=== PATIENT | male | born 1970 | race Caucasian/White ===

== ENCOUNTER 2017-11-10 15:17 | Emergency (ER) | payer BC ==
[~2017-11-10] VITALS: Ht 170.2 cm; Wt 113.6 kg
[2017-11-10 15:35] VITALS: Ht 170.2 cm; Wt 113.6 kg
[2017-11-10] MEDS ORDERED: EXFORGE 5-160 M1 TAB PO (15:37)
[2017-11-10] MEDS ORDERED: PENICILLIN V P500 MG PO (15:37)
[2017-11-10] MEDS ORDERED: ZANTAC150 MG PO (15:37)
[2017-11-10 17:20] LABS: BASOPHILS 0.1 % (0-2); EOSINOPHILS 0.5 % (0-7); HEMATOCRIT 36.8 % (42.0-54.0); HEMOGLOBIN 12.5 g/dL (13.5-17.5); IMMATURE GRANULOCYTES 0.4 % (0-5); LYMPHOCYTES 21.4 % (15-50); MCH 29.3 pg (26.0-34.0); MCV 86.2 fL (80.0-100.0); MEAN PLATELET VOLUME 9.3 fL (7.4-10.4); MONOCYTES 5.5 % (2-11); NEUTROPHILS 72.1 % (40-80); PLATELET COUNT 354 10x3/uL (130-400); RBC 4.27 10x6/uL (4.20-6.10); RDW 13.5 % (11.5-14.5); WBC 9.4 10x3/uL (4.8-10.8)
[2017-11-10 17:42] LABS: ALBUMIN 3.5 g/dL (3.4-5.0); ALKALINE PHOSPHATASE 75 U/L (46-116); ALT (SGPT) 35 U/L (10-68); BILIRUBIN - TOTAL 0.86 mg/dL (0.2-1.3); CALC OSMOLALITY 277 mosm/kg (275-300); CARBON DIOXIDE 28.2 mmol/L (21.0-32.0); CHLORIDE - SERUM 101 mmol/L (98-107); GLUCOSE 97 mg/dL (74-106); POTASSIUM - SERUM 3.8 mmol/L (3.5-5.1); PROTEIN - SERUM 7.4 g/dL (6.4-8.2); SODIUM 139 mmol/L (136-145); UREA NITROGEN 12 mg/dL (7-18); eGFR NON AFRICAN AMERICAN 85 mL/min (90-120)
[2017-11-10 18:05] LABS: APTT 32.9 SECONDS (22.8-39.4); INR 1.05 (0.85-1.17); PROTIME 13.3 SECONDS (11.6-15.0)
[2017-11-10 18:07] LABS: D-DIMER-QUANTITATIVE 0.39 ug/mLFEU (0.20-0.54)
[2017-11-10 18:28] LABS: CREATINE KINASE 143 UL (21-232)
[2017-11-10 18:43] LABS: C-REACTIVE PROTEIN 0.9 mg/dL (0.0-0.9)
[2017-11-10 19:20] LABS: CKMB 0.7 U/L (0.0-3.6)
[2017-11-10 19:49] LABS: ERYTHROCYTE SEDIMENTATION RATE 23 mm/hr (0-15)
[2017-11-10 20:00] VITALS: BP 169/84
[2017-11-10 20:19] LABS: APPEARANCE CLEAR (CLEAR); BILIRUBIN NEGATIVE (NEGATIVE); COLOR YELLOW (YELLOW); GLUCOSE NEGATIVE (NEGATIVE); KETONE NEGATIVE (NEGATIVE); NITRITE NEGATIVE (NEGATIVE); PROTEIN NEGATIVE (NEGATIVE); UROBILINOGEN NORMAL (NORMAL)
[2017-11-10 21:00] VITALS: BP 159/72
[2017-11-10 22:00] VITALS: BP 157/79
[2017-11-10 23:09] VITALS: BP 162/79
== END 2017-11-10 23:09 | disposition other institution (70) ==
LOC: D.ER 15:17 → D.SDCHOLD 16:31 → D.ER 16:31
PROVIDERS: Family Medicine
DX: I38 Endocarditis, valve unspecified (principal)

== ENCOUNTER → 2017-11-15 15:13 | Outpatient (CLI) | payer BC ==
[2017-11-10 15:35] VITALS: BMI 39.2
[~2017-11-15 15:13] MED LIST: EXFORGE 5-160 M1 TAB PO; PENICILLIN V P500 MG PO; ZANTAC150 MG PO
[2017-11-15 16:09] LABS: BASOPHILS 0.2 % (0-2); EOSINOPHILS 2.1 % (0-7); HEMATOCRIT 38.4 % (42.0-54.0); HEMOGLOBIN 12.8 g/dL (13.5-17.5); IMMATURE GRANULOCYTES 0.3 % (0-5); LYMPHOCYTES 27.8 % (15-50); MCH 29.4 pg (26.0-34.0); MCHC 33.3 g/dL (31.0-37.0); MCV 88.3 fL (80.0-100.0); MEAN PLATELET VOLUME 10.3 fL (7.4-10.4); MONOCYTES 7.3 % (2-11); NEUTROPHILS 62.3 % (40-80); PLATELET COUNT 338 10x3/uL (130-400); RBC 4.35 10x6/uL (4.20-6.10); RDW 14.1 % (11.5-14.5); WBC 6.3 10x3/uL (4.8-10.8)
[2017-11-15 16:21] LABS: CALC OSMOLALITY 282 mosm/kg (275-300); CALCIUM 8.8 mg/dL (8.5-10.1); CARBON DIOXIDE 28.1 mmol/L (21.0-32.0); CHLORIDE - SERUM 100 mmol/L (98-107); CREATININE - SERUM 1.1 mg/dL (0.6-1.3); GLUCOSE 113 mg/dL (74-106); SODIUM 141 mmol/L (136-145); UREA NITROGEN 15 mg/dL (7-18); eGFR NON AFRICAN AMERICAN 76 mL/min (90-120)
== END | disposition home or self-care (01) ==
LOC: D.LAB 15:13
PROVIDERS: Family Medicine
DX: I38 Endocarditis, valve unspecified (principal)

== ENCOUNTER → 2017-11-22 15:50 | Outpatient (CLI) | payer BC ==
[2017-11-10 15:35] VITALS: BMI 39.2
[2017-11-22 16:27] LABS: BASOPHILS 0.2 % (0-2); EOSINOPHILS 0.3 % (0-7); HEMATOCRIT 39.3 % (42.0-54.0); HEMOGLOBIN 13.2 g/dL (13.5-17.5); IMMATURE GRANULOCYTES 0.1 % (0-5); LYMPHOCYTES 15.6 % (15-50); MCH 29.4 pg (26.0-34.0); MCHC 33.6 g/dL (31.0-37.0); MCV 87.5 fL (80.0-100.0); MEAN PLATELET VOLUME 10.7 fL (7.4-10.4); MONOCYTES 7.9 % (2-11); NEUTROPHILS 75.9 % (40-80); PLATELET COUNT 319 10x3/uL (130-400); RBC 4.49 10x6/uL (4.20-6.10); RDW 14.1 % (11.5-14.5); WBC 8.9 10x3/uL (4.8-10.8)
[2017-11-22 17:03] LABS: ANION GAP 14.1 mmol/L (8-16); CARBON DIOXIDE 27.8 mmol/L (21.0-32.0); CREATININE - SERUM 1.3 mg/dL (0.6-1.3); POTASSIUM - SERUM 3.9 mmol/L (3.5-5.1)
== END | disposition home or self-care (01) ==
LOC: D.LABREF 15:50
PROVIDERS: Family Medicine
DX: I38 Endocarditis, valve unspecified (principal)

== ENCOUNTER → 2017-11-29 18:45 | Outpatient (CLI) | payer BC ==
[2017-11-10 15:35] VITALS: BMI 39.2
[2017-11-29 19:56] LABS: BASOPHILS 0.2 % (0-2); EOSINOPHILS 2.5 % (0-7); HEMATOCRIT 36.8 % (42.0-54.0); HEMOGLOBIN 12.2 g/dL (13.5-17.5); IMMATURE GRANULOCYTES 0.2 % (0-5); LYMPHOCYTES 34.2 % (15-50); MCH 29.3 pg (26.0-34.0); MCHC 33.2 g/dL (31.0-37.0); MCV 88.5 fL (80.0-100.0); MEAN PLATELET VOLUME 10.1 fL (7.4-10.4); MONOCYTES 10.2 % (2-11); NEUTROPHILS 52.7 % (40-80); PLATELET COUNT 271 10x3/uL (130-400); RBC 4.16 10x6/uL (4.20-6.10); WBC 5.7 10x3/uL (4.8-10.8)
[2017-11-29 20:35] LABS: CALC OSMOLALITY 278 mosm/kg (275-300); CALCIUM 8.5 mg/dL (8.5-10.1); CARBON DIOXIDE 30.7 mmol/L (21.0-32.0); CHLORIDE - SERUM 103 mmol/L (98-107); CREATININE - SERUM 1.1 mg/dL (0.6-1.3); GLUCOSE 95 mg/dL (74-106); POTASSIUM - SERUM 4.1 mmol/L (3.5-5.1); SODIUM 140 mmol/L (136-145); UREA NITROGEN 13 mg/dL (7-18); eGFR NON AFRICAN AMERICAN 76 mL/min (90-120)
== END | disposition home or self-care (01) ==
LOC: D.LABREF 18:45
PROVIDERS: Family Medicine
DX: I38 Endocarditis, valve unspecified (principal)

== ENCOUNTER → 2017-12-06 18:04 | Outpatient (CLI) | payer BC ==
[2017-11-10 15:35] VITALS: BMI 39.2
[2017-12-06 19:33] LABS: CALC OSMOLALITY 277 mosm/kg (275-300); CALCIUM 8.8 mg/dL (8.5-10.1); CARBON DIOXIDE 30.1 mmol/L (21.0-32.0); CHLORIDE - SERUM 104 mmol/L (98-107); CREATININE - SERUM 1.1 mg/dL (0.6-1.3); GLUCOSE 79 mg/dL (74-106); POTASSIUM - SERUM 3.5 mmol/L (3.5-5.1); SODIUM 139 mmol/L (136-145); UREA NITROGEN 15 mg/dL (7-18); eGFR NON AFRICAN AMERICAN 76 mL/min (90-120)
== END | disposition home or self-care (01) ==
LOC: D.LABREF 18:04
PROVIDERS: Internal Medicine
DX: I38 Endocarditis, valve unspecified (principal)

== ENCOUNTER 2018-04-14 11:04 | Outpatient (CLI) | payer BC ==
[~2018-04-14] VITALS: Ht 170.2 cm; Wt 105.5 kg
--- NOTE | ~2018-04-14 | HEMODYNAMI ---
PATIENT:MANDI GARCÍA MEDICAL RECORD: [id number] : 68 LOCATION:D.CAT ADMISSION DATE: 04/14/18 Generatedon:04/14/201813:51 Patient name: MANDI GARCÍA Patient #: [id number] SSN: : 1970 Date of study: 04/14/2018 Page: Of Hemodynamic Procedure Report Patient Data Patient Demographics Procedure consent was obtained First Name: MANDI Gender: Male Last Name: RAQUEL : 1970 Patient #: [id number] Age: 47 year(s) Race: Additional ID: [id number] Contact details [address]: [address] [place] [address] State: [place] City: [place] Zip code: [address] Admission Admission Data Admission Date: 04/14/2018 Admission Time: 11:04 Procedure Procedure Types Cath Procedure Diagnostic Procedure ELLA Procedure Description Procedure Date Procedure Date: 04/14/2018 Procedure Start Time: 13:35 Procedure End Time: 13:46 Procedure Staff Name Function Lele Rojo RT Monitor Laron Sesay RN Nurse Arcadio Arceo Jr PEDIATRIC MEDICAL ASSISTANT Additional personnel Fan Austin MD Performing Physician Steve Dawn Medical Clerical Assistant Kelly Al RT Monitor Procedure Data Cath Procedure Fluoroscopy Diagnostic fluoroscopy Total fluoroscopy Time: 0 time: 0 min min Diagnostic fluoroscopy Total fluoroscopy dose: 0 dose: 0 mGy mGy Contrast Material Contrast Material Type Amount (ml) Isovue 300 0 Estimated blood loss: 0 ml Procedure Complications No complications Hemodynamics Rest Heart Rate: 76 (bpm) Snapshots Pre Cath Intra NCS Post Cath Vital Signs Time Heart Resp SPO2 NIBP (mmHg) Rhythm Pain Sedation Rate (ipm) (%) Status Level (bpm) 13:33:53 86 19 97 143/84(110) NSR 0 (11) 10(A) , No pain 13:38:19 66 16 98 158/131(155) NSR 0 (11) 10(A) , No pain 13:43:06 68 26 99 125/67(98) NSR 0 (11) 10(A) , No pain 13:49:45 61 18 98 104/41(73) NSR 0 (11) 10(A) , No pain Procedure Log Time Note 13:11:32 Laron Sesay RN sent for patient. Start room use. 13:11:33 Time tracking: Regular hours (M-F 7:00 - 5:00) 13:11:38 Plan of Care:Hemodynamics will remain stable., Cardiac rhythm will remain stable., Comfort level will be maintained., Respiratory function will remain adequate., Patient/ family verbilizes understanding of procedure., Procedure tolerated without complication., Recovers from procedure without complications.. 13:25:25 Patient arrived from Pre/Post Procedure Room to [facility] 3. Patient remains on bed/stretcher for procedure. 13:25:26 Correct patient and procedure confirmed by team. 13:25:26 Warm blankets applied, and elmira hugger turned on for patient comfort. 13:25:27 Signed procedure consent form obtained from patient. 13:25:28 ECG and BP/O2 sat monitors applied to patient. 13:25:32 Arcadio Arceo Jr PEDIATRIC MEDICAL ASSISTANT present and monitoring patient for TIVA. 13:25:35 Steve Dawn Cleat Maker present for ELLA. 13:32:15 Vital chart was started 13:32:18 Baseline sample Acquired. 13:32:20 Rhythm: sinus rhythm 13:32:22 Full Disclosure recording started 13:32:30 Pre-procedure instructions explained to patient. 13:32:30 H&P Date Dictated: 04/14/2018 Within 30 days and on chart., H&P Addendum completed by physician on day of procedure. (MUST COMPLETE FOR ALL OUTPATIENTS). 13:32:31 Pre-op teaching completed and patient verbalized understanding. 13:32:34 Family in patients room. 13:32:35 Patient NPO since Midnight. 13:32:36 Is the patient allergic to Iodine/contrast media? No. 13:32:39 Is patient on blood thinner?No 13:32:43 Patient diabetic? No. 13:32:46 Previous problem with sedation/anesthesia? No ? 13:32:47 Snore? Yes 13:32:48 Sleep apnea? Yes 13:32:49 Opens mouth fully? Yes 13:32:49 Deviated septum? No 13:32:50 Sticks out tongue? Yes 13:32:52 Airway obstruction? No ? 13:32:53 Dentures? No ? 13:32:57 Patient pain scale 0/10 ?. 13:33:05 IV patent on arrival in left forearm with 0.9% NaCl at [facility] 13:33:07 Lab results completed and on chart. 13:33:11 Alarms reviewed by R. N. 13:33:29 Pt prepped for ELLA. 13:33:31 --------ALL STOP TIME OUT------ 13:33:32 Final Timeout: patient, procedure, and site verified with staff and physician. All members of the team are in agreement. 13:33:37 Physical assessment completed. ASA score P 2 - A patient with mild systemic disease as per Fan Austin MD. 13:33:42 Sedation plan: TIVA Medication:Propofol 13:35:27 Procedure started. 13:35:28 ELLA started. 13:45:17 ELLA completed. 13:45:32 Procedure ended.(Physican Out) 13:45:49 Fluoroscopy time 00.00 minutes. 13:45:51 Fluoroscopy dose: 0 mGy 13:45:51 Flurop Dose total: 0 13:45:55 Contrast amount:Isovue 300 0ml. 13:45:58 Sharps counted by scrub and verified by R.N. 13:45:59 Insertion/operative site no bleeding no hematoma. 13:46:03 Post procedure rhythm: unchanged. 13:46:05 Estimated blood loss: 0 ml 13:46:07 Post procedure instruction explained to patient.Patient verbalizes understanding. 13:46:08 Patient needs reinforcement of post procedure teaching. 13:46:16 Procedure and supply charges have been captured, reviewed, submitted and are correct. 13:46:21 Procedure Complication : No complications 13:46:23 Vital chart was stopped 13:46:24 See physician's report for complete and final results. 13:46:50 Report given to Pre/Post Procedure Room. 13:46:54 Patient transfered to Pre/Post Procedure Room with Stretcher. 13:46:57 Full Disclosure recording stopped 13:46:57 Procedure ended. 13:47:00 End room use (Document Last) Signature Audit [place] Time Signature Unsigned Intra-Procedure 04/14/2018 Kelly Al 1:51:05 PM RT(R) Signatures Monitor : Lele Rojo RT Signature : Date : Time : Monitor : Kelly Al RT Signature : Date : Time : [address] [place] [address]
--- NOTE | ~2018-04-14 | TEE ---
PATIENT:MANDI GARCÍA MEDICAL RECORD: [id number] LOCATION:D.CAT AGE OF PATIENT: 47 ADMISSION DATE: 04/14/18 SEX: M REFERRING PHYSICIAN: INTERPRETING PHYSICIAN: JESSICA DUMONT MD TRANSESOPHAGEAL ECHOCARDIOGRAM Date: 04/14/18 ELLA CHARGE Y INDICATIONS: ENDOCARDITIS, MITRIAL AND REGURG PREMEDICATIONS: PATIENT'S RESPONSE PROCEDURE DOPPLER MEASUREMENTS: LVIT LA PA RA LVOT RVOT Asc. Ao AV Gradient Peak AV Mean AV Area MV Gradient Peak MV Mean MV Area INTERPRETATION: Doppler: 2-D: COLOR FLOW DOPPLER NORMAL SALINE STUDY: MISCELLANOUS: DIAGNOSIS: PLAN: Director Of Donor Relations:3 [facility] Administrator: Suresh KAN COMMENTS: JONELLE PATIENT DATE OF SERVICE: 04/14/2018 DESCRIPTION OF PROCEDURE: After general sedation via TIVA via anesthesia, transesophageal Omniplane probe was placed in the distal esophagus and proximal stomach without difficulty. FINDINGS: Normal LV internal dimensions, wall motion, and systolic function. EF is greater than or equal to 55%. Tricuspid valve is well visualized. This is trileaflet with good valve excursion. No significant AI. Left atrium TRANSESOPHAGEAL ECHOCARDIOGRAM REPORT [id number] MANDI GARCÍA appears of normal dimensions. Left atrial appendage is well visualized with good contractility. The mitral valve is well visualized. This shows a previously described vegetation as well as mitral valve prolapse. At the prolapse point, there is color flow in this area. On 2D inspection, this appears to be a true fenestration. Multiple views and planes were taken through this area. There is a second moderate MR jet from the prolapse itself. Right-sided chambers are grossly normal. Tricuspid valve is well visualized and appears normal with trace TR. Pulmonic valve again is well visualized. This appears normal. 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 TRANSINT:[id number] Voice Confirmation ID: [id number] DOCUMENT ID: [id number] JESSICA DUMONT MD CC: [id number] DICTATION DATE: 04/14/18 1400 ALUMINA REFINERY OPERATOR: 04/14/18 1447 REG [facility] [address] [place] [address]
--- NOTE | ~2018-04-14 | TEE ---
PATIENT:MNADI GARCÍA MEDICAL RECORD: [id number] LOCATION:D.[facility] AGE OF PATIENT: 47 ADMISSION DATE: 04/14/18 SEX: M REFERRING PHYSICIAN: INTERPRETING PHYSICIAN: NÉSTOR VILLANUEVA MD TRANSESOPHAGEAL ECHOCARDIOGRAM Date: 04/14/18 ELLA CHARGE Y INDICATIONS: ENDOCARDITIS, MITRIAL AND REGURG PREMEDICATIONS: PATIENT'S RESPONSE PROCEDURE DOPPLER MEASUREMENTS: LVIT LA PA RA LVOT RVOT Asc. Ao AV Gradient Peak AV Mean AV Area MV Gradient Peak MV Mean MV Area INTERPRETATION: Doppler: 2-D: COLOR FLOW DOPPLER NORMAL SALINE STUDY: MISCELLANOUS: DIAGNOSIS: PLAN: Bar Finish Operator:3 Dr. Yeboah Garment Tag Stringer: Suresh KAN COMMENTS: SAL PATIENT DATE OF SERVICE: PROCEDURE: Transesophageal echo evaluation of valvular structures during mitral valve replacement surgery. FINDINGS: 1. Left ventricular chamber size is within normal limits. Left ventricular systolic function is normal. Overall ejection fraction estimated 55%. 2. Left atrium, right atrium, and right ventricular chamber sizes are mildly TRANSESOPHAGEAL ECHOCARDIOGRAM REPORT [id number] MANDI GARCÍA dilated. 3. Valvular structures: Vegetation is present on the mitral valve, this is not a new finding. The patient is scheduled for mitral valve replacement. 4. Doppler interrogation reveals mild mitral regurgitation, mild tricuspid regurgitation, trace aortic insufficiency. No other valvular insufficiency or stenosis. 5. No evidence of pericardial effusion or left ventricular thrombus. TRANSINT:[id number] Voice Confirmation ID: [id number] DOCUMENT ID: [id number] NÉSTOR VILLANUEVA MD CC: [id number] DICTATION DATE: 04/14/18 1514 BULLARD MACHINE OPERATOR: 04/15/18 0446 DEP CLI 04/14/18 [id number] [place] [address]
[2018-04-14] MEDS ORDERED: ASPIRIN81 MG PO (11:33)
[2018-04-14] MEDS ORDERED: COZAAR100 MG PO (11:35)
[2018-04-14] MEDS ORDERED: TOPROL XL25 MG PO (11:35)
[2018-04-14] MEDS ORDERED: ATIVAN0.5 MG PO (11:36)
[2018-04-14 11:47] VITALS: BP 136/80; Ht 170.2 cm; Wt 105.5 kg
[2018-04-14 12:41] LABS: CALC OSMOLALITY 278 mosm/kg (275-300); CALCIUM 9.1 mg/dL (8.5-10.1); CARBON DIOXIDE 27.5 mmol/L (21.0-32.0); CHLORIDE - SERUM 104 mmol/L (98-107); CREATININE - SERUM 1.1 mg/dL (0.6-1.3); GLUCOSE 104 mg/dL (74-106); POTASSIUM - SERUM 4.2 mmol/L (3.5-5.1); SODIUM 139 mmol/L (136-145); UREA NITROGEN 15 mg/dL (7-18); eGFR NON AFRICAN AMERICAN 76 mL/min (90-120)
[2018-04-14 12:56] LABS: BASOPHILS 0.2 % (0-2); EOSINOPHILS 0.5 % (0-7); HEMATOCRIT 40.4 % (42.0-54.0); HEMOGLOBIN 13.9 g/dL (13.5-17.5); LYMPHOCYTES 40.6 % (15-50); MCH 29.7 pg (26.0-34.0); MCHC 34.4 g/dL (31.0-37.0); MCV 86.3 fL (80.0-100.0); MEAN PLATELET VOLUME 10.5 fL (7.4-10.4); MONOCYTES 9.7 % (2-11); PLATELET COUNT 232 10x3/uL (130-400); RBC 4.68 10x6/uL (4.20-6.10); RDW 14.2 % (11.5-14.5); WBC 4.4 10x3/uL (4.8-10.8)
[2018-04-14 12:59] LABS: APTT 32.8 SECONDS (22.8-39.4); INR 1.09 (0.85-1.17); PROTIME 13.6 SECONDS (11.6-15.0)
== END 2018-04-14 15:05 | disposition home or self-care (01) ==
LOC: D.CATH 11:04
PROVIDERS: Internal Medicine Cardiovascular Disease
DX: I34.1 Nonrheumatic mitral (valve) prolapse (principal); Z01.812 Encounter for preprocedural laboratory examination

== ENCOUNTER → 2018-04-14 16:11 | Outpatient (CLI) | payer BC ==
[2018-04-14 11:47] VITALS: BMI 36.4
[~2018-04-14 16:11] MED LIST changes: +ASPIRIN81 MG PO; +ATIVAN0.5 MG PO; +COZAAR100 MG PO; +TOPROL XL25 MG PO
== END | disposition home or self-care (01) ==
LOC: D.US 16:11
DX: I15.9 Secondary hypertension, unspecified (principal)

== ENCOUNTER → 2018-06-13 14:20 | Outpatient (CLI) | payer OTHER ==
[2018-04-14 11:47] VITALS: BMI 36.4
== END | disposition home or self-care (01) ==
LOC: D.US 14:20
DX: R82.5 Elevated urine levels of drugs, medicaments and biological substances (principal)